=== PATIENT | female | born 1940 | race Two or more races ===

== ENCOUNTER 2016-10-02 08:00 | Emergency (ER) | payer MEDICARE ==
--- NOTE | ~2016-10-02 | ER ---
PATIENT'S NAME: [facility] AGE: 76 Y [address] ROOM: [place] [address] LOCATION: [facility] ADMIT DATE: 10/02/2016 ER/Outpatient Report DISCHARGE DATE: FAMILY PHYSICIAN: Gabriella Travis MD ATTENDING PHYSICIAN: Baron Sharp Time of Arrival: 0804 hours. Time of Evaluation: 0804 hours. CHIEF COMPLAINT: Rash. HISTORY OF PRESENT ILLNESS: The patient is a 76-year-old female, who presents to the emergency department today with chief complaint of rash. She reports this started 1 day prior to arrival. She denies any fevers. Does have chills. Does have some nausea. No vomiting. No diarrhea. Does have chronic constipation. It is itchy type rash. It is underneath both breasts on her upper abdomen. She denies any new soaps or detergents. She, however, did have a bug bite there and put some cream on it. PAST MEDICAL HISTORY: Hypertension and atrial fibrillation. PAST SURGICAL HISTORY: Bladder, cholecystectomy, appendectomy, hysterectomy. SOCIAL HISTORY: The patient smokes 2-3 cigarettes per day. Denies any alcohol or illicit drug use. ALLERGIES: NO KNOWN DRUG ALLERGIES. MEDICATIONS: Please see list. PRIMARY CARE DOCTOR: Gabriella Travis MD. REVIEW OF SYSTEMS: All systems are reviewed by myself and negative with the exception of those discussed in HPI and past medical history. PHYSICAL EXAMINATION: PATIENT'S NAME: [facility] AGE: 76 Y [address] ROOM: [place] [address] LOCATION: [facility] ADMIT DATE: 10/02/2016 ER/Outpatient Report DISCHARGE DATE: FAMILY PHYSICIAN: Gabriella Travis MD ATTENDING PHYSICIAN: Baron Sharp VITAL SIGNS: Weight 79.1 kg. Blood pressure 122/52, pulse 83, respiratory rate 16, temperature 97.2, oxygen saturation 97% on room air. GENERAL: The patient is a 76-year-old female, who appears stated age, in no acute distress. HEENT: Normocephalic, atraumatic. Oropharynx is clear. NECK: Supple. There is no nuchal rigidity. CARDIOVASCULAR: Regular rate and rhythm. LUNGS: Clear to auscultation. ABDOMEN: Soft, nontender, and nondistended. No rebound, rigidity, or guarding. MUSCULOSKELETAL: The patient ambulates with steady gait. Moves all 4 extremities. SKIN: Warm and dry. The patient does have erythematous rash, that has raised underneath the breast and along the mid epigastric region. It is blanching. There is no petechiae or purpura. There is no evidence of vesicular lesion noted. No evidence of lesions on the palms or soles. IMPRESSION: 1. Rash, not otherwise specified. 2. Initial visit. EMERGENCY DEPARTMENT COURSE: The patient was brought back to the examination room. Seen and evaluated by myself. History and physical was performed as described above. I have written a prescription for Lotrisone as well as prednisone for home. I have asked that she follows up with Dr. Travis in 3 days for re-evaluation. I have discussed return to care instructions including worsening symptoms or any other concerns to return to the emergency department as soon as possible. The patient is agreeable without further questions at this time. DISPOSITION: The patient was discharged home in good condition. DO KUSHAL ESCOTO/modl /[id number] d: 10/02/16 0854 t: 10/05/16 0640, OUTPATIENT REPORT
== END 2016-10-02 08:15 | disposition disaster alternative care site (69) ==
LOC: GMED 08:00
DX: R21 Rash and other nonspecific skin eruption (principal); I10 Essential (primary) hypertension; I48.91 Unspecified atrial fibrillation; F17.210 Nicotine dependence, cigarettes, uncomplicated; Z90.49 Acquired absence of other specified parts of digestive tract; Z90.710 Acquired absence of both cervix and uterus; Z79.01 Long term (current) use of anticoagulants; Z79.899 Other long term (current) drug therapy